=== PATIENT | male | born 1945 | race Caucasian/White ===

== ENCOUNTER 2017-01-15 09:19 | Emergency (ER) | payer OTHER, MEDICAID ==
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
[2017-01-15] MEDS ORDERED: LETS SOLN TOPICAL 1 EA SYR TP ONE (10:59)
[2017-01-15 12:39] VITALS: BP 149/100; PULSE 98; RESP 18; TEMP 98.1; O2SAT 96
== END 2017-01-15 12:32 | disposition home or self-care (01) ==
LOC: EDUNIT#
DX: S09.90XA Unspecified injury of head, initial encounter (principal); S40.011A Contusion of right shoulder, initial encounter; S80.212A Abrasion, left knee, initial encounter; I10 Essential (primary) hypertension; E11.9 Type 2 diabetes mellitus without complications; V13.4XXA Pedal cycle driver injured in collision with car, pick-up truck or van in traffic accident, initial encounter; Y92.410 Unspecified street and highway as the place of occurrence of the external cause; Y93.89 Activity, other specified
CPT/HCPCS: 82947-QW; G0390